=== PATIENT | female | born 1950 | race Caucasian/White ===

== ENCOUNTER → 2016-12-15 | Outpatient (CLI) | payer MEDICARE ==
[~2016-12-15] MED LIST: HYDR-1421; METH2.5T3; METO50TA7; OMEP20TA44; PRED10PA; QUIN20TA35
[2016-12-15 14:52] LABS: Basophils # (auto) 0 uL; Basophils % (auto) 0.2 % (0.0-2.0); DEFINITIVE VIEW TRANSMISSION; Eosinophils # (auto) 0 uL; Eosinophils % (auto) 0.5 % (0.0-7.0); Hematocrit 40.1 % (36.0-46.0); Hemoglobin 12.7 g/dL (12.2-16.2); Lymphocytes # (auto) 0.9 uL; Lymphocytes % (auto) 12.4 % (10.0-50.0); Mean Corpuscular Hemoglobin 32.6 pg (28.0-32.0); Mean Corpuscular Hgb Conc. 31.7 g/dL (32.0-36.0); Mean Corpuscular Volume 102.9 fL (80.0-100.0); Mean Platelet Volume 8.1 fL (7.4-10.4); Monocytes # (auto) 0.2 uL; Monocytes % (auto) 2.9 % (0.0-12.0); Neutrophils # (auto) 6.1 uL; Platelet Count (auto) 286 10^3/uL (140-450); Red Cell Distribution Width 19.4 % (11.6-16.0); SUSPECT VIEW TRANSMISSION; White Blood Cell 7.2 10^3/uL (4.4-10.8)
[2016-12-15 14:56] LABS: Anisocytosis Slight; Macrocytosis Slight; Platelet Estimate Adequate
[2016-12-15 15:11] LABS: Albumin 3.7 g/dL (3.4-5.0); BUN/Creatinine Ratio 13.4; Bilirubin, Total 0.4 mg/dL (0.2-1.0); Calcium 9.8 mg/dL (8.5-10.1); Potassium 4.4 mmol/L (3.5-5.1); Total Protein 7.5 g/dL (6.4-8.2)
== END | disposition home or self-care (01) ==
LOC: LAB 14:14
DX: D64.9 Anemia, unspecified (principal); M06.9 Rheumatoid arthritis, unspecified; I10 Essential (primary) hypertension; M25.50 Pain in unspecified joint
CPT/HCPCS: 36415; 80053; 85025; 85652; 86141

== ENCOUNTER 2017-01-08 20:43 | Emergency (ER) | payer MEDICARE ==
[~2017-01-08] VITALS: Ht 160 cm; Wt 131.5 kg
[2017-01-08 20:56] VITALS: BP 180/84
== END 2017-01-08 21:05 | disposition left against medical advice (07) ==
LOC: ER 20:43
DX: M54.5 Low back pain (principal); Z53.21 Procedure and treatment not carried out due to patient leaving prior to being seen by health care provider

== ENCOUNTER → 2017-01-12 | Outpatient (CLI) | payer MEDICARE | END | disposition home or self-care (01) | LOC: LAB 09:29 | PROVIDERS: ATTEND Internal Medicine | DX: N39.0 Urinary tract infection, site not specified (principal) | CPT/HCPCS: 87086 ==

== ENCOUNTER 2017-01-24 13:57 | Inpatient (IN) | payer MEDICARE ==
[~2017-01-24] VITALS: Ht 160 cm; Wt 60.9 kg
[2017-01-24 15:09] LABS: Basophils # (auto) 0 uL; DEFINITIVE VIEW TRANSMISSION; Eosinophils # (auto) 0 uL; Eosinophils % (auto) 0.1 % (0.0-7.0); Hematocrit 37.8 % (36.0-46.0); Lymphocytes # (auto) 0.9 uL; Mean Corpuscular Hemoglobin 33.2 pg (28.0-32.0); Mean Corpuscular Hgb Conc. 31.6 g/dL (32.0-36.0); Mean Corpuscular Volume 105.1 fL (80.0-100.0); Mean Platelet Volume 8.1 fL (7.4-10.4); Monocytes # (auto) 0.4 uL; Monocytes % (auto) 2.1 % (0.0-12.0); Neutrophils # (auto) 17.5 uL; Neutrophils % (auto) 92.8 % (37.0-80.0); Platelet Count (auto) 479 10^3/uL (140-450); White Blood Cell 18.9 10^3/uL (4.4-10.8)
[2017-01-24 15:14] LABS: Urine Bilirubin Negative (Negative); Urine Blood Negative /uL (Negative); Urine Color Yellow (Yellow); Urine Glucose Normal (Normal); Urine Hyaline Cast FEW /lpf (0 - 2); Urine Ketone Negative (Negative); Urine Mucus FEW (None Seen); Urine Nitrite Negative (Negative); Urine RBC 1 /hpf (0 - 4); Urine Squamous Epithelial Cell FEW /hpf (<5); Urine Urobilinogen Normal (Negative); Urine pH 5.5 (5.0-8.0)
[2017-01-24 15:21] LABS: Red Cell Distribution Width 20.5 % (11.6-16.0)
[2017-01-24 15:43] LABS: Albumin 3.2 g/dL (3.4-5.0); Alkaline Phosphatase 78 U/L (45-117); Anion Gap 11 (5-15); Aspartate Aminotransferase 20 U/L (15-37); BUN/Creatinine Ratio 11.6; Bilirubin, Total 0.8 mg/dL (0.2-1.0); Blood Urea Nitrogen 28 mg/dL (7-18); Calcium 9.8 mg/dL (8.5-10.1); Carbon Dioxide 25 mmol/L (21-32); Chloride 97 mmol/L (98-107); GFR African American 26 mL/min; GFR Non-African American 21 mL/min; Glucose 142 mg/dL (74-106); Magnesium 2.7 mg/dL (1.6-2.6); Potassium 4.9 mmol/L (3.5-5.1); Sodium 133 mmol/L (136-145); Total Protein 7.8 g/dL (6.4-8.2)
[2017-01-24 16:39] LABS: Anisocytosis Moderate; Macrocytosis Moderate; Platelet Estimate Increased; Stomatocytes Few
[2017-01-24] MEDS ORDERED: cefTRIAXone 1GM/50ML D5W 50 ML IV ONE (20:00)
[2017-01-24] MEDS ORDERED: SODIUM CHLORIDE 0.9% 1,000 ML IV ONE (20:15)
[2017-01-24] MEDS ORDERED: MORPHINE SULF INJ 2 MG/ML SYRINGE 1ML IV ONE (20:15)
[2017-01-24] MEDS ORDERED: ONDANSETRON HCL 4 MG/2 ML VIAL IV ONE (20:15)
[2017-01-24] MEDS ORDERED: metroNIDAZOLE 500MG/100ML 100 ML IV ONE (22:00)
[2017-01-25] VITALS (7 sets, daily range): BP systolic 99–142; BP diastolic 50–64
[2017-01-25] MEDS ORDERED: ACETAMINOPHEN 325 MG TAB PO ONE (00:15)
[2017-01-25] MEDS ORDERED: SODIUM CHLORIDE 0.9% 1,000 ML IV SCH (01:37)
[2017-01-25] MEDS ORDERED: TEMAZEPAM 15 MG CAP PO PRN (01:45)
[2017-01-25] MEDS ORDERED: ONDANSETRON HCL 4 MG/2 ML VIAL IV PRN (01:45)
[2017-01-25] MEDS ORDERED: METOPROLOL SUCCINATE XL 50 MG TAB PO ONE (01:45)
[2017-01-25] MEDS ORDERED: PANTOPRAZOLE SODIUM 40 MG/10 ML VIAL IV ONE (01:45)
[2017-01-25] MEDS: HYDROcodone-ACET 5/325MG TAB PO PRN ×2 (03:54→09:45)
[2017-01-25] MEDS: metroNIDAZOLE 500MG/100ML 100 ML IV SCH ×3 (06:30→21:39)
[2017-01-25] MEDS: MORPHINE SULF INJ 2 MG/ML SYRINGE 1ML IV PRN (06:31)
[2017-01-25] MEDS: ENOXAPARIN SOD 30 MG/0.3 ML SYRINGE SC SCH (09:42)
[2017-01-25] MEDS: PANTOPRAZOLE SODIUM 40 MG/10 ML VIAL IV SCH (09:42)
[2017-01-25] MEDS: predniSONE 5 MG TAB PO SCH (09:42)
[2017-01-25] MEDS ORDERED: QUINAPRIL HCL 10 MG TAB PO SCH (10:00)
[2017-01-25] MEDS: HYDROcodone-ACET 10/325MG TAB PO PRN ×3 (13:48→21:57)
[2017-01-25] MEDS: SODIUM CHLORIDE 0.9% 1,000 ML IV SCH ×2 (13:49→23:41)
[2017-01-25] MEDS: LACTULOSE 20Gm/30ML SOLN PO PRN (17:07)
[2017-01-25] MEDS: cefTRIAXone 1GM/50ML D5W 50 ML IV SCH (21:39)
[2017-01-25] MEDS: DOCUSATE SOD 100 MG CAP PO SCH (21:39)
[2017-01-25] MEDS ORDERED: METOPROLOL SUCCINATE XL 50 MG TAB PO SCH (22:00)
[2017-01-26] MEDS: LACTULOSE 20Gm/30ML SOLN PO PRN (00:13)
[2017-01-26] MEDS: MORPHINE SULF INJ 2 MG/ML SYRINGE 1ML IV PRN ×5 (02:05→20:12)
[2017-01-26] MEDS ORDERED: FOLI1TAB6 PO (04:17)
[2017-01-26] MEDS ORDERED: OMEP20CA5 PO (04:17)
[2017-01-26] MEDS ORDERED: ASPI325T4 PO (04:18)
[2017-01-26] MEDS ORDERED: METH2.5T3 IM (04:20)
[2017-01-26] MEDS ORDERED: ERGO1CAP6 PO (04:22)
[2017-01-26] MEDS ORDERED: ALLO100T PO (04:23)
[2017-01-26] MEDS ORDERED: CYCL1TAB18 PO (04:24)
[2017-01-26 05:00] VITALS: BP 152/94
[2017-01-26] MEDS: metroNIDAZOLE 500MG/100ML 100 ML IV SCH ×3 (06:07→21:50)
[2017-01-26 06:27] LABS: DEFINITIVE VIEW TRANSMISSION; Hematocrit 34.1 % (36.0-46.0); Hemoglobin 11.1 g/dL (12.2-16.2); Mean Corpuscular Hemoglobin 33.8 pg (28.0-32.0); Mean Corpuscular Hgb Conc. 32.5 g/dL (32.0-36.0); Mean Corpuscular Volume 103.9 fL (80.0-100.0); Mean Platelet Volume 8.4 fL (7.4-10.4); Platelet Count (auto) 381 10^3/uL (140-450); SUSPECT VIEW TRANSMISSION; White Blood Cell 14.5 10^3/uL (4.4-10.8)
[2017-01-26 06:46] LABS: Metamyelocytes % 0; Myelocytes % 0; Promyelocytes % 0; Reactive Lymphocytes 0
[2017-01-26 06:48] LABS: Calcium 9.6 mg/dL (8.5-10.1); Potassium 4.2 mmol/L (3.5-5.1)
[2017-01-26 06:49] LABS: BUN/Creatinine Ratio 11.7
[2017-01-26 08:00] VITALS: BP 112/71
[2017-01-26 08:37] LABS: Anisocytosis Slight; Macrocytosis Slight; Platelet Estimate Adequate
[2017-01-26 09:00] VITALS: BP 112/71
[2017-01-26] MEDS: PANTOPRAZOLE SODIUM 40 MG/10 ML VIAL IV SCH (09:59)
[2017-01-26] MEDS: DOCUSATE SOD 100 MG CAP PO SCH ×2 (10:00→21:57)
[2017-01-26] MEDS: ENOXAPARIN SOD 30 MG/0.3 ML SYRINGE SC SCH (10:00)
[2017-01-26] MEDS: predniSONE 5 MG TAB PO SCH (10:00)
[2017-01-26] MEDS: SODIUM CHLORIDE 0.9% 1,000 ML IV SCH (11:58)
[2017-01-26] MEDS ORDERED: GOLYTELY 4L KIT PO ONE (12:00)
[2017-01-26] MEDS: LACTULOSE 20Gm/30ML SOLN PO SCH ×3 (12:03→23:59)
[2017-01-26 13:00] VITALS: BP 109/66
[2017-01-26] MEDS ORDERED: HYDROmorphone HCL 2 MG/ML VL IM ONE (15:45)
[2017-01-26] MEDS: LORazepam 2MG/ML-1ML VIAL IV PRN ×2 (16:18→22:12)
[2017-01-26 20:00] VITALS: BP 144/70
[2017-01-26 21:55] VITALS: BP 144/70
[2017-01-26] MEDS: cefTRIAXone 1GM/50ML D5W 50 ML IV SCH (23:53)
[2017-01-27] MEDS: HYDROmorphone HCL 2 MG/ML VL IV PRN ×5 (01:17→21:40)
[2017-01-27] MEDS: SODIUM CHLORIDE 0.9% 1,000 ML IV SCH ×2 (01:46→14:38)
[2017-01-27] MEDS ORDERED: MAGNESIUM CITRATE SOLUTION 300 ML BTL PO ONE (04:00)
[2017-01-27] MEDS: LORazepam 2MG/ML-1ML VIAL IV PRN ×3 (04:00→20:21)
[2017-01-27 05:10] VITALS: BP 118/68
[2017-01-27] MEDS: metroNIDAZOLE 500MG/100ML 100 ML IV SCH ×3 (05:40→21:40)
[2017-01-27] MEDS: LACTULOSE 20Gm/30ML SOLN PO SCH ×3 (06:00→18:00)
[2017-01-27 06:35] LABS: Basophils # (auto) 0 uL; Basophils % (auto) 0.1 % (0.0-2.0); DEFINITIVE VIEW TRANSMISSION; Eosinophils # (auto) 0 uL; Eosinophils % (auto) 0.2 % (0.0-7.0); Hematocrit 31.1 % (36.0-46.0); Lymphocytes # (auto) 0.4 uL; Lymphocytes % (auto) 4.5 % (10.0-50.0); Mean Corpuscular Hemoglobin 33.4 pg (28.0-32.0); Mean Corpuscular Hgb Conc. 32.1 g/dL (32.0-36.0); Mean Corpuscular Volume 104.1 fL (80.0-100.0); Mean Platelet Volume 8.1 fL (7.4-10.4); Monocytes # (auto) 0.5 uL; Monocytes % (auto) 5.6 % (0.0-12.0); Neutrophils # (auto) 8.2 uL; Neutrophils % (auto) 89.6 % (37.0-80.0); Platelet Count (auto) 351 10^3/uL (140-450); SUSPECT VIEW TRANSMISSION; White Blood Cell 9.2 10^3/uL (4.4-10.8)
[2017-01-27 06:38] LABS: Red Cell Distribution Width 20.6 % (11.6-16.0)
[2017-01-27 07:08] LABS: Calcium 8.9 mg/dL (8.5-10.1); Potassium 3.6 mmol/L (3.5-5.1)
[2017-01-27 07:09] LABS: BUN/Creatinine Ratio 22.3
[2017-01-27 08:13] LABS: Anisocytosis Slight; Macrocytosis Slight; Platelet Estimate Adequate
[2017-01-27] MEDS: ENOXAPARIN SOD 30 MG/0.3 ML SYRINGE SC SCH (11:02)
[2017-01-27] MEDS: predniSONE 5 MG TAB PO SCH (11:02)
[2017-01-27] MEDS: PANTOPRAZOLE SODIUM 40 MG/10 ML VIAL IV SCH (11:02)
[2017-01-27] MEDS: DOCUSATE SOD 100 MG CAP PO SCH ×2 (11:02→21:53)
[2017-01-27] MEDS ORDERED: CLINIMIX PER PHARMACY 0 ML IV SCH (12:15)
[2017-01-27 12:30] VITALS: BP 110/72
[2017-01-27 13:00] LABS: Magnesium 2.6 mg/dL (1.6-2.6); Phosphorus 2.2 mg/dL (2.5-4.90)
[2017-01-27] MEDS ORDERED: SODIUM CHLORIDE 0.9% 1,000 ML IV SCH ×2 (14:30→20:00)
[2017-01-27] MEDS ORDERED: CLINIMIX PER PHARMACY IV NR ×7 (20:00)
[2017-01-27 21:52] VITALS: BP 111/64
[2017-01-28] MEDS ORDERED: DEXTROSE (50%) 50ML SYRG IV SCH
[2017-01-28] MEDS: LACTULOSE 20Gm/30ML SOLN PO SCH ×4 (00:25→18:00)
[2017-01-28] MEDS: cefTRIAXone 1GM/50ML D5W 50 ML IV SCH ×2 (00:25→21:10)
[2017-01-28] MEDS: ACCU-CHEK COMFORT CURVE STRIP VI SCH ×4 (00:26→18:00)
[2017-01-28] MEDS: LORazepam 2MG/ML-1ML VIAL IV PRN (02:31)
[2017-01-28] MEDS: HYDROmorphone HCL 2 MG/ML VL IV PRN ×4 (04:28→21:14)
[2017-01-28 04:58] VITALS: BP 120/61
[2017-01-28] MEDS: metroNIDAZOLE 500MG/100ML 100 ML IV SCH ×3 (05:53→22:32)
[2017-01-28] MEDS: InsuLIN REG 1unit/0.01ml Soln (100units/ml) SC SCH ×4 (06:00→18:00)
[2017-01-28 06:05] LABS: Basophils # (auto) 0.1 uL; Basophils % (auto) 0.5 % (0.0-2.0); DEFINITIVE VIEW TRANSMISSION; Eosinophils # (auto) 0 uL; Eosinophils % (auto) 0.2 % (0.0-7.0); Hematocrit 29.3 % (36.0-46.0); Hemoglobin 9.5 g/dL (12.2-16.2); Lymphocytes # (auto) 0.5 uL; Lymphocytes % (auto) 3.2 % (10.0-50.0); Mean Corpuscular Hemoglobin 33.8 pg (28.0-32.0); Mean Corpuscular Hgb Conc. 32.4 g/dL (32.0-36.0); Mean Corpuscular Volume 104.2 fL (80.0-100.0); Mean Platelet Volume 8.2 fL (7.4-10.4); Monocytes # (auto) 1.3 uL; Monocytes % (auto) 7.8 % (0.0-12.0); Neutrophils # (auto) 14.7 uL; Neutrophils % (auto) 88.3 % (37.0-80.0); Platelet Count (auto) 343 10^3/uL (140-450); SUSPECT VIEW TRANSMISSION; White Blood Cell 16.7 10^3/uL (4.4-10.8)
[2017-01-28 06:14] LABS: Red Cell Distribution Width 20.2 % (11.6-16.0)
[2017-01-28 06:27] LABS: Potassium 4.1 mmol/L (3.5-5.1)
[2017-01-28 06:39] LABS: Albumin 1.8 g/dL (3.4-5.0); BUN/Creatinine Ratio 12.6; Bilirubin, Total 0.4 mg/dL (0.2-1.0); Calcium 8.4 mg/dL (8.5-10.1); Magnesium 2.3 mg/dL (1.6-2.6); Total Protein 5.2 g/dL (6.4-8.2)
[2017-01-28 06:40] LABS: Phosphorus 1.4 mg/dL (2.5-4.90)
[2017-01-28 07:31] LABS: Anisocytosis Slight; Macrocytosis Slight; Platelet Estimate Adequate
[2017-01-28 07:46] VITALS: BP 121/61
[2017-01-28] MEDS ORDERED: SODIUM PHOSPHATES 24 MEQ in SODIUM CHL 0.9% 100 ML IV ONE (10:00)
[2017-01-28] MEDS: ENOXAPARIN SOD 30 MG/0.3 ML SYRINGE SC SCH (10:48)
[2017-01-28] MEDS: PANTOPRAZOLE SODIUM 40 MG/10 ML VIAL IV SCH (10:48)
[2017-01-28] MEDS: methylPREDNISolone SOD SUCC 40 MG/ML VL IV SCH (10:51)
[2017-01-28] MEDS: DOCUSATE SOD 100 MG CAP PO SCH ×2 (10:51→21:02)
[2017-01-28 12:08] VITALS: BP 109/60
[2017-01-28 17:02] VITALS: BP 118/60
[2017-01-28] MEDS: SODIUM CHLORIDE 0.9% 1,000 ML IV SCH (20:00)
[2017-01-28] MEDS ORDERED: CLINIMIX PER PHARMACY IV NR ×6 (20:00)
[2017-01-28 21:46] VITALS: BP 122/70
[2017-01-29] VITALS (7 sets, daily range): BP systolic 124–140; BP diastolic 68–78
[2017-01-29] MEDS: ACCU-CHEK COMFORT CURVE STRIP VI SCH ×4 (00:01→18:15)
[2017-01-29] MEDS: InsuLIN REG 1unit/0.01ml Soln (100units/ml) SC SCH ×4 (00:16→18:27)
[2017-01-29] MEDS: HYDROmorphone HCL 2 MG/ML VL IV PRN ×5 (03:21→22:30)
[2017-01-29] MEDS: LACTULOSE 20Gm/30ML SOLN PO SCH ×4 (05:06→18:00)
[2017-01-29] MEDS: metroNIDAZOLE 500MG/100ML 100 ML IV SCH ×3 (05:07→21:53)
[2017-01-29 06:48] LABS: DEFINITIVE VIEW TRANSMISSION; Hematocrit 27.9 % (36.0-46.0); Mean Corpuscular Hemoglobin 33.4 pg (28.0-32.0); Mean Corpuscular Hgb Conc. 32.2 g/dL (32.0-36.0); Mean Corpuscular Volume 103.7 fL (80.0-100.0); Mean Platelet Volume 8.3 fL (7.4-10.4); Platelet Count (auto) 355 10^3/uL (140-450); Red Cell Distribution Width 20.3 % (11.6-16.0); SUSPECT VIEW TRANSMISSION; White Blood Cell 21.9 10^3/uL (4.4-10.8)
[2017-01-29 07:11] LABS: Albumin 1.6 g/dL (3.4-5.0); Bilirubin, Total 0.2 mg/dL (0.2-1.0); Magnesium 2.3 mg/dL (1.6-2.6); Phosphorus 2.8 mg/dL (2.5-4.90); Potassium 4.1 mmol/L (3.5-5.1); Total Protein 5.5 g/dL (6.4-8.2)
[2017-01-29 07:36] LABS: Metamyelocytes % 0; Myelocytes % 0; Promyelocytes % 0; Reactive Lymphocytes 0
[2017-01-29 08:12] LABS: Anisocytosis Slight; Hypochromia Slight; Platelet Estimate Adequate
[2017-01-29] MEDS: PANTOPRAZOLE SODIUM 40 MG/10 ML VIAL IV SCH (10:00)
[2017-01-29] MEDS: DOCUSATE SOD 100 MG CAP PO SCH ×2 (10:00→20:48)
[2017-01-29] MEDS: methylPREDNISolone SOD SUCC 40 MG/ML VL IV SCH (10:20)
[2017-01-29] MEDS: ENOXAPARIN SOD 30 MG/0.3 ML SYRINGE SC SCH (10:20)
[2017-01-29] MEDS: SODIUM CHLORIDE 0.9% 1,000 ML IV SCH (11:40)
[2017-01-29] MEDS ORDERED: CLINIMIX PER PHARMACY IV NR ×7 (20:00)
[2017-01-29] MEDS: cefTRIAXone 1GM/50ML D5W 50 ML IV SCH (20:50)
[2017-01-30] MEDS: LACTULOSE 20Gm/30ML SOLN PO SCH ×5 (01:46→18:00)
[2017-01-30] MEDS: HYDROmorphone HCL 2 MG/ML VL IV PRN ×3 (04:42→20:12)
[2017-01-30 05:00] VITALS: BP 139/64
[2017-01-30] MEDS: SODIUM CHLORIDE 0.9% 1,000 ML IV SCH ×2 (05:20→21:43)
[2017-01-30] MEDS: metroNIDAZOLE 500MG/100ML 100 ML IV SCH ×3 (05:56→22:32)
[2017-01-30] MEDS: ACCU-CHEK COMFORT CURVE STRIP VI SCH ×4 (05:56→18:17)
[2017-01-30] MEDS: InsuLIN REG 1unit/0.01ml Soln (100units/ml) SC SCH ×4 (06:00→18:00)
[2017-01-30 06:10] LABS: DEFINITIVE VIEW TRANSMISSION; Hematocrit 29.9 % (36.0-46.0); Hemoglobin 9.5 g/dL (12.2-16.2); Mean Corpuscular Hgb Conc. 31.8 g/dL (32.0-36.0); Mean Corpuscular Volume 103.6 fL (80.0-100.0); Platelet Count (auto) 395 10^3/uL (140-450); SUSPECT VIEW TRANSMISSION; White Blood Cell 25.9 10^3/uL (4.4-10.8)
[2017-01-30 06:26] LABS: Red Cell Distribution Width 20.9 % (11.6-16.0)
[2017-01-30 06:27] LABS: Metamyelocytes % 0; Myelocytes % 0; Promyelocytes % 0; Reactive Lymphocytes 0
[2017-01-30 06:34] LABS: Albumin 1.6 g/dL (3.4-5.0); BUN/Creatinine Ratio 30.4; Bilirubin, Total 0.2 mg/dL (0.2-1.0); Calcium 9.6 mg/dL (8.5-10.1); Magnesium 2.3 mg/dL (1.6-2.6); Phosphorus 2.7 mg/dL (2.5-4.90); Potassium 4.3 mmol/L (3.5-5.1); Total Protein 5.9 g/dL (6.4-8.2)
[2017-01-30 06:47] LABS: Platelet Estimate Adequate
[2017-01-30 06:48] LABS: Anisocytosis Slight; Macrocytosis Slight
[2017-01-30 08:00] VITALS: BP 125/56
[2017-01-30 08:21] VITALS: BP 149/96
[2017-01-30] MEDS: LORazepam 2MG/ML-1ML VIAL IV PRN (09:29)
[2017-01-30] MEDS: DOCUSATE SOD 100 MG CAP PO SCH ×2 (10:00→21:43)
[2017-01-30] MEDS ORDERED: methylPREDNISolone SOD SUCC 40 MG/ML VL IV SCH (10:00)
[2017-01-30] MEDS: PANTOPRAZOLE SODIUM 40 MG/10 ML VIAL IV SCH (10:04)
[2017-01-30] MEDS: ENOXAPARIN SOD 30 MG/0.3 ML SYRINGE SC SCH (10:04)
[2017-01-30 13:00] VITALS: BP 150/89
[2017-01-30 16:37] VITALS: BP 141/87
[2017-01-30] MEDS: ACETAMINOPHEN 325 MG TAB PO PRN (17:08)
[2017-01-30] MEDS ORDERED: CLINIMIX PER PHARMACY IV NR ×6 (20:00)
[2017-01-30] MEDS: cefTRIAXone 1GM/50ML D5W 50 ML IV SCH (21:42)
[2017-01-30 21:45] VITALS: BP 150/81
[2017-01-31] MEDS: LORazepam 2MG/ML-1ML VIAL IV PRN ×2 (00:15→09:55)
[2017-01-31] MEDS: ACCU-CHEK COMFORT CURVE STRIP VI SCH ×4 (00:19→17:51)
[2017-01-31] MEDS: HYDROmorphone HCL 2 MG/ML VL IV PRN ×6 (00:59→21:59)
[2017-01-31] MEDS: ACETAMINOPHEN 325 MG TAB PO PRN ×2 (03:38→11:19)
[2017-01-31 05:06] VITALS: BP 147/85
[2017-01-31] MEDS: metroNIDAZOLE 500MG/100ML 100 ML IV SCH ×2 (05:48→13:57)
[2017-01-31] MEDS: LACTULOSE 20Gm/30ML SOLN PO SCH ×2 (05:49)
[2017-01-31] MEDS: InsuLIN REG 1unit/0.01ml Soln (100units/ml) SC SCH ×4 (05:49→17:51)
[2017-01-31 06:46] LABS: DEFINITIVE VIEW TRANSMISSION; Hematocrit 29.3 % (36.0-46.0); Hemoglobin 9.4 g/dL (12.2-16.2); Mean Corpuscular Hemoglobin 32.9 pg (28.0-32.0); Mean Corpuscular Hgb Conc. 32.2 g/dL (32.0-36.0); Mean Corpuscular Volume 102.2 fL (80.0-100.0); Mean Platelet Volume 8.1 fL (7.4-10.4); Platelet Count (auto) 397 10^3/uL (140-450); SUSPECT VIEW TRANSMISSION; White Blood Cell 21.1 10^3/uL (4.4-10.8)
[2017-01-31 07:16] LABS: Red Cell Distribution Width 20.4 % (11.6-16.0)
[2017-01-31 07:17] LABS: Promyelocytes % 0; Reactive Lymphocytes 0
[2017-01-31 07:21] LABS: Albumin 1.6 g/dL (3.4-5.0); BUN/Creatinine Ratio 32.8; Bilirubin, Total 0.3 mg/dL (0.2-1.0); Calcium 9.6 mg/dL (8.5-10.1); Magnesium 2.2 mg/dL (1.6-2.6); Phosphorus 2.2 mg/dL (2.5-4.90); Total Protein 5.5 g/dL (6.4-8.2)
[2017-01-31 07:35] VITALS: BP 149/77
[2017-01-31] MEDS: DOCUSATE SOD 100 MG CAP PO SCH (09:55)
[2017-01-31] MEDS: ENOXAPARIN SOD 30 MG/0.3 ML SYRINGE SC SCH (09:56)
[2017-01-31] MEDS ORDERED: predniSONE 5 MG TAB PO SCH (10:00)
[2017-01-31] MEDS ORDERED: FLUCONAZOLE 100 MG TAB PO ONE (10:45)
[2017-01-31] MEDS ORDERED: METOPROLOL SUCCINATE XL 50 MG TAB PO ONE (11:00)
[2017-01-31] MEDS: PANTOPRAZOLE SODIUM 40 MG/10 ML VIAL IV SCH (11:24)
[2017-01-31] MEDS: NYSTATIN (MOUTH-THROAT) 500,000 UNITS/5 ML SUSP MT SCH ×3 (11:26→21:52)
[2017-01-31 14:02] LABS: Metamyelocytes % 2; Myelocytes % 2; Platelet Estimate Adequate
[2017-01-31 14:04] LABS: Anisocytosis Slight; Burr Cells FEW; Macrocytosis Slight; Tear Drop Cells FEW
[2017-01-31 17:23] VITALS: BP 155/93
[2017-01-31] MEDS ORDERED: CLINIMIX PER PHARMACY IV NR ×7 (20:00)
[2017-01-31] MEDS: predniSONE 5 MG TAB PO SCH (21:52)
[2017-01-31 22:00] VITALS: BP 153/80
[2017-02-01] MEDS: metroNIDAZOLE 500MG/100ML 100 ML IV SCH ×2 (00:02→06:15)
[2017-02-01] MEDS: ACCU-CHEK COMFORT CURVE STRIP VI SCH ×4 (00:02→18:11)
[2017-02-01] MEDS: ACETAMINOPHEN 325 MG TAB PO PRN ×4 (00:07→20:57)
[2017-02-01] MEDS: cefTRIAXone 1GM/50ML D5W 50 ML IV SCH ×2 (01:03→22:10)
[2017-02-01 05:46] VITALS: BP 149/84
[2017-02-01 05:46] LABS: DEFINITIVE VIEW TRANSMISSION; Hematocrit 30.3 % (36.0-46.0); Hemoglobin 9.7 g/dL (12.2-16.2); Mean Corpuscular Hemoglobin 32.9 pg (28.0-32.0); Mean Corpuscular Hgb Conc. 32.2 g/dL (32.0-36.0); Mean Corpuscular Volume 102.2 fL (80.0-100.0); Mean Platelet Volume 7.9 fL (7.4-10.4); Platelet Count (auto) 372 10^3/uL (140-450); SUSPECT VIEW TRANSMISSION; White Blood Cell 18.5 10^3/uL (4.4-10.8)
[2017-02-01 06:13] LABS: Potassium 4.3 mmol/L (3.5-5.1)
[2017-02-01] MEDS: NYSTATIN (MOUTH-THROAT) 500,000 UNITS/5 ML SUSP MT SCH ×4 (06:15→22:09)
[2017-02-01 06:18] LABS: BUN/Creatinine Ratio 28.1; Calcium 8.9 mg/dL (8.5-10.1)
[2017-02-01] MEDS: InsuLIN REG 1unit/0.01ml Soln (100units/ml) SC SCH ×4 (06:20→18:00)
[2017-02-01 06:21] LABS: Red Cell Distribution Width 20.9 % (11.6-16.0)
[2017-02-01 06:22] LABS: Metamyelocytes % 0; Promyelocytes % 0; Reactive Lymphocytes 0
[2017-02-01] MEDS: HYDROmorphone HCL 2 MG/ML VL IV PRN ×4 (06:58→20:24)
[2017-02-01 09:00] VITALS: BP 131/70
[2017-02-01] MEDS: predniSONE 5 MG TAB PO SCH ×2 (09:25→22:09)
[2017-02-01] MEDS: PANTOPRAZOLE SODIUM 40 MG/10 ML VIAL IV SCH (09:25)
[2017-02-01] MEDS: ENOXAPARIN SOD 30 MG/0.3 ML SYRINGE SC SCH (09:25)
[2017-02-01] MEDS: FLUCONAZOLE 100 MG TAB PO SCH (09:25)
[2017-02-01] MEDS: METOPROLOL SUCCINATE XL 50 MG TAB PO SCH (09:26)
[2017-02-01] MEDS ORDERED: TEMAZEPAM 15 MG CAP PO PRN (11:00)
[2017-02-01] MEDS ORDERED: HYDROcodone-ACET 10/325MG TAB PO PRN (11:00)
[2017-02-01] MEDS: PANTOPRAZOLE 40 MG TAB PO SCH (11:07)
[2017-02-01 11:10] LABS: Myelocytes % 4
[2017-02-01 11:15] LABS: Anisocytosis Slight; Macrocytosis Slight; Platelet Estimate Adequate; Stomatocytes Few; Tear Drop Cells FEW
[2017-02-01] MEDS: FLORASTOR (S. BOULARDII) 250 MG CAP PO SCH (12:04)
[2017-02-01 13:00] VITALS: BP 134/70
[2017-02-01] MEDS: metroNIDAZOLE 500 MG TAB PO SCH ×2 (14:10→22:09)
[2017-02-01 17:00] VITALS: BP 123/66
[2017-02-01 20:00] VITALS: BP 157/99
[2017-02-01 22:00] VITALS: BP 157/99
[2017-02-01] MEDS: PRO-STAT 64 30ML PO SCH (22:00)
[2017-02-01] MEDS ORDERED: HYDROmorphone HCL 2 MG/ML VL IV ONE (22:15)
[2017-02-02] VITALS (8 sets, daily range): BP systolic 121–154; BP diastolic 68–88
[2017-02-02] MEDS: ACCU-CHEK COMFORT CURVE STRIP VI SCH ×3 (00:50→12:00)
[2017-02-02] MEDS: HYDROmorphone HCL 2 MG/ML VL IV PRN ×4 (01:29→13:27)
[2017-02-02] MEDS: metroNIDAZOLE 500 MG TAB PO SCH ×2 (05:51→14:00)
[2017-02-02] MEDS: NYSTATIN (MOUTH-THROAT) 500,000 UNITS/5 ML SUSP MT SCH ×2 (05:51→12:00)
[2017-02-02] MEDS: InsuLIN REG 1unit/0.01ml Soln (100units/ml) SC SCH ×3 (05:58→12:00)
[2017-02-02 06:43] LABS: DEFINITIVE VIEW TRANSMISSION; Hematocrit 29.7 % (36.0-46.0); Hemoglobin 9.6 g/dL (12.2-16.2); Mean Corpuscular Hemoglobin 32.6 pg (28.0-32.0); Mean Corpuscular Hgb Conc. 32.2 g/dL (32.0-36.0); Mean Corpuscular Volume 101.3 fL (80.0-100.0); Mean Platelet Volume 8.4 fL (7.4-10.4); Platelet Count (auto) 349 10^3/uL (140-450); SUSPECT VIEW TRANSMISSION
[2017-02-02 07:09] LABS: Metamyelocytes % 0; Myelocytes % 0; Promyelocytes % 0; Reactive Lymphocytes 0; Red Cell Distribution Width 20.3 % (11.6-16.0)
[2017-02-02 07:19] LABS: BUN/Creatinine Ratio 23.1; Calcium 9.1 mg/dL (8.5-10.1); Potassium 4.3 mmol/L (3.5-5.1)
[2017-02-02 07:54] LABS: Macrocytosis Slight
[2017-02-02 07:55] LABS: Anisocytosis Slight; Platelet Estimate Adequate; Stomatocytes Few; Tear Drop Cells FEW
[2017-02-02] MEDS: ACETAMINOPHEN 325 MG TAB PO PRN (09:41)
[2017-02-02] MEDS: FLORASTOR (S. BOULARDII) 250 MG CAP PO SCH (09:43)
[2017-02-02] MEDS: FLUCONAZOLE 100 MG TAB PO SCH (09:44)
[2017-02-02] MEDS: PANTOPRAZOLE 40 MG TAB PO SCH (09:44)
[2017-02-02] MEDS: METOPROLOL SUCCINATE XL 50 MG TAB PO SCH (09:45)
[2017-02-02] MEDS: PRO-STAT 64 30ML PO SCH (09:45)
[2017-02-02] MEDS: predniSONE 5 MG TAB PO SCH (09:45)
[2017-02-02] MEDS ORDERED: ENOXAPARIN SOD 30 MG/0.3 ML SYRINGE SC SCH (10:00)
[2017-02-03] MEDS ORDERED: predniSONE 5 MG TAB PO SCH (07:00)
== END 2017-02-02 19:39 | DRG 871 ==
LOC: ER 13:57 → EAST 13:58
PROVIDERS: ADMIT Nurse Practitioner; ATTEND Internal Medicine
DX: A41.9 Sepsis, unspecified organism (principal); N17.0 Acute kidney failure with tubular necrosis; E87.1 Hypo-osmolality and hyponatremia; K57.32 Diverticulitis of large intestine without perforation or abscess without bleeding; B37.0 Candidal stomatitis; E44.0 Moderate protein-calorie malnutrition; N13.30 Unspecified hydronephrosis; D63.8 Anemia in other chronic diseases classified elsewhere; E66.01 Morbid (severe) obesity due to excess calories; K21.9 Gastro-esophageal reflux disease without esophagitis; M79.7 Fibromyalgia; M06.9 Rheumatoid arthritis, unspecified; M54.9 Dorsalgia, unspecified; G89.29 Other chronic pain; K43.9 Ventral hernia without obstruction or gangrene; K76.0 Fatty (change of) liver, not elsewhere classified; N18.3 Chronic kidney disease, stage 3 (moderate); I12.9 Hypertensive chronic kidney disease with stage 1 through stage 4 chronic kidney disease, or unspecified chronic kidney disease; Z87.440 Personal history of urinary (tract) infections; Z88.6 Allergy status to analgesic agent; Z91.041 Radiographic dye allergy status; Z91.048 Other nonmedicinal substance allergy status; Z82.49 Family history of ischemic heart disease and other diseases of the circulatory system; Z68.23 Body mass index [BMI] 23.0-23.9, adult
CPT/HCPCS: 36415; 71010; 74000; 74176; 80048; 80053; 81001; 82040; 82962; 83605; 83735; 84100; 84478; 84484; 85007; 85025; 85027; 87040; 87086; 87493; 93005; 94761; 96361; 96365; 96367; 96375; 97001; C9113; J0696; J1815; J2405; J3490